=== PATIENT | female | born 1960 | race Hispanic/Latino ===

== ENCOUNTER 2021-04-16 08:53 | Observation (INO) | payer MEDICARE ==
[2021-04-09 10:00] LABS: BASOPHILS % (AUTO) 0.2 % (0.0-5.0); EOSINOPHILS % (AUTO) 0.2 % (0.0-8.0); HEMATOCRIT 40.5 % (36-48); LYMPHOCYTES % (AUTO) 26.8 % (21.0-51.0); MEAN CORPUSCULAR HGB CONC 31.1 g/dL (32.0-36.0); MEAN CORPUSCULAR VOLUME 86.9 fL (79-99); MONOCYTES % (AUTO) 13.5 % (3.0-13.0); NEUTROPHILS % (AUTO) 57.7 % (40.0-77.0); PLATELET COUNT (AUTO) 139 K/uL (130-400); RED BLOOD CELL COUNT(AUTO) 4.66 MIL/uL (4.00-5.50); RED CELL DISTRIBUTION WIDTH 13.9 % (11.0-15.5)
[2021-04-09 10:10] LABS: INR 1.01 (0.85-1.15)
[2021-04-09 10:14] LABS: ALBUMIN 3.8 g/dL (3.5-5.0); BILIRUBIN,TOTAL 0.4 mg/dL (0.2-1.0); POTASSIUM 4.6 mmol/L (3.5-5.1); TOTAL PROTEIN, SERUM 7.8 g/dL (6.0-8.3)
[2021-04-09 10:29] LABS: CREATININE 8.2 mg/dL (0.5-1.5)
[2021-04-15 10:53] VITALS: BP 187/81
[~2021-04-16] VITALS: Ht 154.9 cm; Wt 71.8 kg
[2021-04-16] VITALS (23 sets, daily range): BP systolic 13–169; BP diastolic 54–81
[2021-04-16] MEDS ORDERED: CEFAZOLIN SODIUM 1 GM VIAL ONE ×2 (10:54→20:00)
[2021-04-16] MEDS: CEFAZOLIN SODIUM 1 GM VIAL IVP ONE ×2 (11:00→13:20)
[2021-04-16] MEDS: 0.9%NACL 1000ML 1,000 ML IV SCH ×2 (11:23→14:58)
[2021-04-16] MEDS ORDERED: PREG50 PO (11:35)
[2021-04-16] MEDS ORDERED: CALC667T6 PO (11:35)
[2021-04-16] MEDS ORDERED: SEVE800T7 PO (11:35)
[2021-04-16] MEDS ORDERED: SODI650T PO (11:35)
[2021-04-16] MEDS ORDERED: ATOR10TA69 PO (11:35)
[2021-04-16] MEDS ORDERED: MIDAZOLAM HCL 1 MG/ML 2ML VIAL ONE (12:56)
[2021-04-16] MEDS ORDERED: SUCCINYLCHOLINE CHLORIDE 20 MG/ML 10 ML VIAL ONE (12:56)
[2021-04-16] MEDS ORDERED: ONDANSETRON 4MG INJ ONE (12:56)
[2021-04-16] MEDS ORDERED: PROPOFOL 10 MG/ML 20ML VIAL IV ONE ×2 (12:56→14:33)
[2021-04-16] MEDS ORDERED: NEOSTIGMINE 5MG/5ML SYR IV ONE (12:56)
[2021-04-16] MEDS ORDERED: LIDOCAINE PF 100MG/5ML (2%) SYRINGE 5ML ONE (12:56)
[2021-04-16] MEDS ORDERED: GLYCOPYRROLATE 1 MG/5 ML SYRINGE ONE (12:56)
[2021-04-16] MEDS ORDERED: FENTANYL CITRATE PF 50 MCG/1 ML 2ML VIAL ONE (12:57)
[2021-04-16] MEDS ORDERED: ROCURONIUM 10MG/1ML SYR 10 MG/ML ML ONE (12:57)
[2021-04-16] MEDS ORDERED: MEPERIDINE-PF 25 MG/ML SYG ONE (15:07)
[2021-04-16] MEDS ORDERED: LACTATED RINGERS 1000ML 1,000 ML IV ONE (20:00)
[2021-04-16] MEDS ORDERED: ONDANSETRON 4MG INJ IVP PRN (20:00)
[2021-04-16] MEDS: MORPHINE 4 MG SYG IVP PRN (20:15)
[2021-04-16] MEDS: CEFAZOLIN SODIUM 1 GM VIAL IVP SCH (20:19)
[2021-04-16] MEDS: LACTATED RINGERS 1000ML 1,000 ML IV SCH (20:19)
[2021-04-17] MEDS: CEFAZOLIN SODIUM 1 GM VIAL IVP SCH ×3 (03:18→19:35)
[2021-04-17] MEDS: MORPHINE 4 MG SYG IVP PRN ×3 (03:18→19:10)
[2021-04-17 04:10] VITALS: BP 159/71
[2021-04-17 04:28] LABS: HEMATOCRIT 39.7 % (36-48); MEAN CORPUSCULAR HEMOGLOBIN 27.3 pg (27.0-33.0); MEAN CORPUSCULAR HGB CONC 30.7 g/dL (32.0-36.0); MEAN CORPUSCULAR VOLUME 88.8 fL (79-99); PLATELET COUNT (AUTO) 145 K/uL (130-400); RED BLOOD CELL COUNT(AUTO) 4.47 MIL/uL (4.00-5.50); RED CELL DISTRIBUTION WIDTH 14.7 % (11.0-15.5); WHITE BLOOD COUNT (AUTO) 8.9 K/uL (4.8-10.8)
[2021-04-17 04:42] LABS: CREATININE 7.2 mg/dL (0.5-1.5); POTASSIUM 4.4 mmol/L (3.5-5.1)
[2021-04-17 07:53] VITALS: BP 136/68
[2021-04-17] MEDS: LACTATED RINGERS 1000ML 1,000 ML IV SCH ×2 (08:56→19:11)
[2021-04-17 11:42] VITALS: BP 128/64
[2021-04-17] MEDS: ACETAMINOPHEN WITH CODEINE 1 TAB TAB PO PRN (12:43)
[2021-04-17 16:41] VITALS: BP 116/56
[2021-04-17 20:00] VITALS: BP 116/57
[2021-04-17 23:42] VITALS: BP 133/67
[2021-04-18] MEDS: CEFAZOLIN SODIUM 1 GM VIAL IVP SCH ×3 (03:45→11:39)
[2021-04-18 03:56] VITALS: BP 126/64
[2021-04-18 07:43] VITALS: BP 138/64
[2021-04-18] MEDS: ACETAMINOPHEN WITH CODEINE 1 TAB TAB PO PRN (10:45)
[2021-04-18 11:32] VITALS: BP 128/69
[2021-04-18 15:55] VITALS: BP 125/72
[2021-04-18] MEDS: MORPHINE 4 MG SYG IVP PRN (16:26)
== END 2021-04-18 18:00 | disposition home or self-care (01) ==
LOC: DAH 08:53 → DAHIP 08:54 → 4AH 16:08
PROVIDERS: ADMIT Surgery; ATTEND Surgery
DX: M79.3 Panniculitis, unspecified (principal); Z20.822 Contact with and (suspected) exposure to COVID-19; E11.9 Type 2 diabetes mellitus without complications; I95.9 Hypotension, unspecified
CPT/HCPCS: 15830; 36415 ×3; 80048; 80053; 82948 ×2; 84132; 85025; 85027; 85610; 96361 ×3; 96374; 96375; 96376 ×2; 97039; 97116; 97161; A4213; A4215; A4221; A4222; A4452; A4600; A4649; A4663; A4930; A6260; C9803; G0378 ×54; G8978; G8979; G8980; G8981; G8982; G8983; J0330; J0690 ×7; J2001; J2175; J2270 ×5; J2405; J2704 ×2; J2710; J3010; J3490; J7030; J7120 ×2; U0003; J2250